=== PATIENT | male | born 1945 | race Caucasian/White ===

== ENCOUNTER 2016-11-28 09:33 | Inpatient (IN) | payer MEDICARE ==
[~2016-11-28] VITALS: Ht 177.8 cm; Wt 89.0 kg
[~2016-11-28 09:33] MED LIST: ANDROGEL TOP; CELE200 PO; JANUMET PO; LEVO.05 PO; LISI40TA PO; SIMV20 PO
[2016-11-28] MEDS ORDERED: CHLORHEXIDINE GLUCONATE 2 % 1 PACK (2 CLOTHS) TOPICAL PRN (10:00)
[2016-11-28] MEDS ORDERED: INSULIN HUMAN REGULAR 1,000 UNITS/10 ML VIAL SQ PRN (10:00)
[2016-11-28] MEDS ORDERED: ACETAMINOPHEN 1000 MG/100 ML VIAL IV SCH (10:00)
[2016-11-28] MEDS ORDERED: metroNIDAZOLE 500 MG INJ 100 ML IV SCH (10:00)
[2016-11-28] MEDS ORDERED: POVIDONE IODINE 5% (ANTISEPSIS KIT) 4 APPLICATIONS EACH NARE PRN (10:00)
[2016-11-28] MEDS ORDERED: SODIUM CHLORID 0.9% 500 ML IV PRN (10:00)
[2016-11-28] MEDS ORDERED: LACTATED RINGER'S 1000 ML IV PRN (10:00)
[2016-11-28] MEDS ORDERED: ceFAZolin 2 GM PREMIX 50 ML IV SCH (10:00)
[2016-11-28] MEDS ORDERED: METOPROLOL TARTRATE 25 MG TAB PO PRN (10:00)
[2016-11-28] MEDS ORDERED: CHOL5000 PO (10:07)
[2016-11-28] MEDS ORDERED: ONDA1TAB17 PO (10:07)
[2016-11-28] MEDS ORDERED: METF1000 PO (10:07)
[2016-11-28] MEDS ORDERED: BIOTCAP PO (10:07)
[2016-11-28] MEDS ORDERED: RAMI10CA PO (10:07)
[2016-11-28] MEDS ORDERED: LUTE20CA PO (10:07)
[2016-11-28] MEDS ORDERED: VITATAB11 (10:07)
[2016-11-28] MEDS ORDERED: VITA100T53 (10:07)
[2016-11-28] MEDS ORDERED: FERR324T8 PO (10:07)
[2016-11-28] MEDS ORDERED: OMEP20TA PO (10:07)
[2016-11-28] MEDS ORDERED: MULTTAB26 (10:07)
[2016-11-28 10:15] VITALS: BP 138/71; PULSE 57; RESP 16; TEMP 98.1; O2SAT 100
[2016-11-28 10:15] LABS: AUTOMATED NEUTROPHIL # 3.6 TH/MM3 (1.8-7.7); BASOPHIL % 0.6 % (0.0-2.0); EOSINOPHIL # 0.3 TH/MM3 (0-0.4); EOSINOPHIL % 5.2 % (0.0-4.0); HEMATOCRIT 40.3 % (39.0-51.0); HEMO FLAGS DIFF FINAL; LYMPH % 26.6 % (9.0-44.0); LYMPHOCYTE # 1.6 TH/MM3 (1.0-4.8); MEAN CELL VOLUME 93.5 FL (80.0-100.0); MEAN CORPUSCULAR HEMOGLOBIN 32.2 PG (27.0-34.0); MEAN CORPUSCULAR HGB CONC 34.5 % (32.0-36.0); MONO % 8.4 % (0.0-8.0); NEUT % 59.2 % (16.0-70.0); PLATELET COUNT 238 TH/MM3 (150-450); RED BLOOD COUNT 4.32 MIL/MM3 (4.50-5.90); RED CELL DISTRIBUTION WIDTH 13.5 % (11.6-17.2); WHITE BLOOD COUNT 6.1 TH/MM3 (4.0-11.0)
[2016-11-28 10:39] LABS: ALKALINE PHOSPHATASE 212 U/L (45-117); TOTAL BILIRUBIN ADULT 2.4 MG/DL (0.2-1.0)
[2016-11-28 10:41] LABS: ALT (GPT) 802 U/L (12-78); ANION GAP 9 MEQ/L (5-15); BLOOD UREA NITROGEN 18 MG/DL (7-18); CHLORIDE 102 MEQ/L (98-107); GLOMERULAR FILTRATION RATE 48 ML/MIN (>89); SODIUM (NA) 136 MEQ/L (136-145)
[2016-11-28 10:56] LABS: AST (GOT) 364 U/L (15-37); POTASSIUM 4.3 MEQ/L (3.5-5.1)
[2016-11-28] MEDS ORDERED: BUPIVACAINE/EPINEPHRINE 0.25% 50 ML VIAL ONE (11:00)
--- NOTE | 2016-11-28 14:05 | RADRPT ---
EXAM DATE/TIME: 11/28/2016 12:49 [facility] COMPARISON: No previous studies available for comparison. INDICATIONS : Obstruction. MEDICAL HISTORY : Hypertension. Diabetes mellitus type 2. Carcinoma, colon. Carcinoma, renal SURGICAL HISTORY : Nephrectomy, right. Inguinal hernia repair. Bilateral knee replacements. ENCOUNTER: Initial ACUITY: 1 day PAIN SCORE: 6/10 LOCATION: Right upper quadrant TECHNIQUE: Multiplanar, multisequence magnetic resonance imaging of the abdomen was performed. High-resolution 3D dataset was utilized to reconstruct maximum-intensity projection (MIP) images. FINDINGS: INTRAHEPATIC BILE DUCTS: Mildly prominent. No significant anatomical variant is present. EXTRAHEPATIC BILE DUCTS: The common bile duct measures 6 mm distally and 11 mm proximally. Multiple filling defects in the dis swati common bile duct. GALLBLADDER: Multiple stones without wall thickening, or pericholecystic fluid. Gallbladder is distended. LIVER: Normal size and signal intensity. No concerning liver lesion is identified on this non-contrast exam. PANCREAS: The main pancreatic duct is normal in size. There is no significant anatomical variant. Signal inte nsity is within normal limits. No mass is visualized on this non-contrast exam. OTHER: The remaining visualized structures demonstrate no acute abnormality on this non-contrast exam. Right kidney is seen below the left kidney. CONCLUSION: 1. Distended gallbladder containing multiple gallstones. 2. Multiple filling defects in the distal common bile duct most consistent with choledocholithiasis. 3. Mild intrahepatic biliary duct dilatation. 4. Ectopic right kidney. Israel Patel MD on November 28, 2016 at 13:54 Board Certified Radiologist. This report was verified electronically.
--- NOTE | 2016-11-28 14:22 | EKG ---
Date Performed: 11/28/2016 Time Performed: 10:18:49 PTAGE: 71 years EKG: SINUS BRADYCARDIA BORDERLINE ECG Compared to prior tracing no significant change PREVIOUS TRACING : 10/28/2007 17.48 DOCTOR: Matty Beach Interpretating Date/Time 11/28/2016 14:20:24
[2016-11-28] MEDS ORDERED: NALOXONE HCL 0.4 MG/ML AMP IV PRN (15:00)
[2016-11-28] MEDS ORDERED: MAGNESIUM HYDROXIDE SUSP 30 ML CUP PO PRN (15:00)
[2016-11-28] MEDS ORDERED: SODIUM CHLORIDE 0.9% FLUSH 10 ML FLUSH IV FLUSH PRN (15:00)
[2016-11-28] MEDS ORDERED: ACETAMINOPHEN 325 MG TAB PO PRN (15:00)
--- NOTE | 2016-11-28 15:02 | PD.CONS ---
HPI Service General Surgery Consult Requested By Reason for Consult Gallstones, choledocholithiasis Primary Care Physician Charlene Enamorado MD History of Present Illness 71 yo M referred to my office yesterday for 4 days of epigastric and RUQ pain associated with nausea and vomiting, worsened with eating. Gallbladder u/s had shown stones but no wall thickening. He did have some mild LFT elevation. He was scheduled for cholecystectomy today with preop LFTs. These had increased, therefore an MRCP was ordered which revealed multiple CBD filling defects. Surgery is cancelled. I discussed the case with Dr. Nj who will likely perform ERCP tomorrow. Dr. Ibarra kindly agrees to admit the patient to the hospital. Review of Systems Constitutional: DENIES: Fever, Chills Eyes: DENIES: Eye inflammation, Eye pain Respiratory: DENIES: Cough, Wheezing Cardiovascular: DENIES: Chest pain, Palpitations Gastrointestinal: COMPLAINS OF: Abdominal pain, Nausea, Vomiting Integumentary: DENIES: Pruritus, Rash Neurologic: DENIES: Localized weakness, Paresthesias Past Family Social History Past Medical History Colon cancer Renal cell carcinoma HTN DM Kidney stones Past Surgical History Right colectomy right nephrectomy Reported Medications Reported Meds & Active Scripts Active Reported Vitamin D3 (Cholecalciferol) 5,000 Unit Cap 5,000 Units PO DAILY Vitamin C (Ascorbic Acid) 100 Mg Tablet 500 Ramipril 10 Mg Cap 10 Mg PO DAILY Ondansetron (Ondansetron HCl) 8 Mg Tab 8 Mg PO TID Omeprazole 20 Mg Tab 20 Mg PO DAILY Multi Complete/Iron (Multiple Vitamins W/ Minerals) 1 Tab Tab Vitamin B Complex (B-Complex Vitamins) 1 Tab Metformin (Metformin HCl) 1,000 Mg Tab 1,000 Mg PO BIDPC With meals Lutein 20 Mg Cap 20 Mg PO DAILY Ferrous Fumarate 324 Mg Tab 325 Mg PO BID Biotin 5 Mg Cap 7.5 Mg PO DAILY Zocor (Simvastatin) 20 Mg Tab 20 Mg PO HS Synthroid (Levothyroxine Sodium) 50 Mcg Tab 50 Mcg PO DAILY Allergies: Coded Allergies: No Known Allergies (Verified , 11/28/16) Active Ordered Medications Current Medications Medications (Trade) Dose Ordered Sig/Laura Route Start Time Stop Time Status Last Admin Lactated Ringer's 1,000 ml @ 30 mls/hr Q24H PRN IV 11/28/16 10:00 12/01/16 09:59 (NS 500 ml Inj) 500 ml @ 30 mls/hr [id number] PRN IV 11/28/16 10:00 12/01/16 09:59 Family History Noncontributory Social History . No tobacco use. Physical Exam Vital Signs Vital Signs Date Time Temp Pulse Resp B/P Pulse Ox O2 Delivery O2 Flow Rate FiO2 11/28/16 10:15 98.1 57 16 138/71 100 Physical Exam Gen: pleasant, awake, alert, no distress HEENT: PERRL. Lungs: CTAB, no wheezing or rhonchi CV: RRR Abd: soft, nontender, well healed right flank and right upper transverse incisions Skin: warm, jaundiced Ext: no cyanosis or edema Laboratory Laboratory Tests Test 11/28/16 10:00 White Blood Count 6.1 Red Blood Count 4.32 Hemoglobin 13.9 Hematocrit 40.3 Mean Corpuscular Volume 93.5 Mean Corpuscular Hemoglobin 32.2 Mean Corpuscular Hemoglobin 34.5 Concent Red Cell Distribution Width 13.5 Platelet Count 238 Mean Platelet Volume 8.7 Neutrophils (%) (Auto) 59.2 Lymphocytes (%) (Auto) 26.6 Monocytes (%) (Auto) 8.4 Eosinophils (%) (Auto) 5.2 Basophils (%) (Auto) 0.6 Neutrophils # (Auto) 3.6 Lymphocytes # (Auto) 1.6 Monocytes # (Auto) 0.5 Eosinophils # (Auto) 0.3 Basophils # (Auto) 0.0 CBC Comment DIFF FINAL Differential Comment Sodium Level 136 Potassium Level 4.3 Chloride Level 102 Carbon Dioxide Level 25.0 Anion Gap 9 Blood Urea Nitrogen 18 Creatinine 1.45 Estimat Glomerular Filtration 48 Rate Random Glucose 153 Calcium Level 8.8 Total Bilirubin 2.4 Aspartate Amino Transf 364 (AST/SGOT) Alanine Aminotransferase 802 (ALT/SGPT) Alkaline Phosphatase 212 Total Protein 8.2 Albumin 4.3 Result Diagram: 11/28/16 1000 11/28/16 1000 Imaging Last Impressions Cholangiopancreatography MRI 11/28/16 0000 Signed Impressions: Service Date/Time: Monday, November 28, 2016 12:49 - CONCLUSION: 1. Distended gallbladder containing multiple gallstones. 2. Multiple filling defects in the distal common bile duct most consistent with choledocholithiasis. 3. Mild intrahepatic biliary duct dilatation. 4. Ectopic right kidney. Israel Patel MD Assessment and Plan Assessment and Plan 71 yo M with gallstones and choledocholithiasis. Case d/w Dr. Nj and Dr. Ibarra. Patient will be admitted with ERCP likely tomorrow. Cholecystectomy will be planned in the near future. Dr. Henderson will be covering this weekend. AltafRandall paz MD November 28, 2016 15:02
--- NOTE | 2016-11-28 15:45 | RADRPT ---
EXAM DATE/TIME: 11/28/2016 14:59 [facility] COMPARISON: No previous studies available for comparison. INDICATIONS : Shortness of breath MEDICAL HISTORY : None. SURGICAL HISTORY : None. ENCOUNTER: Initial ACUITY: 1 day PAIN SCORE: 0/10 LOCATION: Bilateral chest FINDINGS: A single view of the chest demonstrates the lungs to be symmetrically aerated without evidence of mas s, infiltrate or effusion. The cardiomediastinal contours are unremarkable. Osseous structures are intact. CONCLUSION: 1. No acute cardiopulmonary disease. Matty Camacho MD on November 28, 2016 at 15:43 Board Certified Radiologist. This report was verified electronically.
--- NOTE | 2016-11-28 15:59 | HHI.HP ---
HPI Service [facility] Primary Care Physician Charlene Enamorado MD Admission Diagnosis Chief Complaint: RUQ pain Travel History International Travel<30 Days: No Contact w/Intl Traveler <30 Da: No Traveled to Known Affected Are: No History of Present Illness Pt is a pleasant 71y/o M with h/o colon cancer, renal cell carcinoma, HTN, and DM. Pt c/o several days of RUQ abdominal pain with associated nausea and vomiting earlier this week. Symptoms have improved over the last few days and pt is again able to tolerate PO intake. Outpt GB US (10/27/16) showed cholelithiasis without GB wall thickening. Pt was scheduled to undergo elective cholecystectomy today with Dr. Solitario. However, pt developed worsening elevation of his transaminases. MRCP showed multiple filling defects in the distal CBD d/w with choledocholithiasis & GB distended with stones but NO GB wall thickening. Cholecystectomy was cancelled. Case was discussed between General Surgery, Dr. Solitario, and GI, Dr. Nj. Pt made full admission to [facility] and planned for ERCP for 11/29/16. Review of Systems Constitutional: DENIES: Diaphoretic episodes, Fatigue, Fever, Weight gain, Weight loss, Chills, Dizziness, Change in appetite, Night Sweats Endocrine: DENIES: Heat/cold intolerance, Polydipsia, Polyuria, Polyphagia Eyes: DENIES: Blurred vision, Diplopia, Eye inflammation, Eye pain, Vision loss , Photosensitivity, Double Vision Ears, nose, mouth, throat: DENIES: Tinnitus, Hearing loss, Vertigo, Nasal discharge, Oral lesions, Throat pain, Hoarseness, Ear Pain, Running Nose, Epistaxis, Sinus Pain, Toothache, Odynophagia Respiratory: DENIES: Apneas, Cough, Snoring, Wheezing, Hemoptysis, Sputum production, Shortness of breath Cardiovascular: DENIES: Chest pain, Palpitations, Syncope, Dyspnea on Exertion , PND, Lower Extremity Edema, Orthopnea, Claudication Gastrointestinal: COMPLAINS OF: Abdominal pain, Nausea, See HPI, DENIES: Black stools, Bloody stools, BRB per rectum, Constipation, Diarrhea, GERD, Reflux, Vomiting, Difficulty Swallowing, Anorexia Genitourinary: DENIES: Urinary frequency, Urinary incontinence, Urgency, Hematuria, Dysuria, Nocturia Musculoskeletal: DENIES: Joint pain, Muscle aches, Stiffness, Joint Swelling, Back pain, Neck pain Integumentary: DENIES: Abnormal pigmentation, Nail changes, Pruritus, Rash Hematologic/lymphatic: DENIES: Bruising, Lymphadenopathy Immunologic/allergic: DENIES: Eczema, Urticaria Neurologic: DENIES: Abnormal gait, Headache, Localized weakness, Paresthesias, Seizures, Speech Problems, Tremor, Poor Balance Psychiatric: DENIES: Anxiety, Confusion, Mood changes, Depression, Hallucinations, Agitation, Suicidal Ideation, Homicidal Ideation, Delusions, History of Bipolar, History of Schizophrenia Past Family Social History Past Medical History 1) HTN 2) DM2, unspecified complications 3) Colon Cancer 4) Renal Cell Carcinoma, s/p Nephrectomy 5) Nephrolithiasis 6) Hyperlipidemia 7) hypothyroidism Past Surgical History 1) right hemicolectomy 2) right nephrectomy 3) b/l TKA 4) partial bladder resection d/t RCC 5) b/l carpal tunnel surgery 6) left rotator cuff surgery Reported Medications Reported Meds & Active Scripts Active Reported Vitamin D3 (Cholecalciferol) 5,000 Unit Cap 5,000 Units PO DAILY Vitamin C (Ascorbic Acid) 100 Mg Tablet 500 Ramipril 10 Mg Cap 10 Mg PO DAILY Ondansetron (Ondansetron HCl) 8 Mg Tab 8 Mg PO TID Omeprazole 20 Mg Tab 20 Mg PO DAILY Multi Complete/Iron (Multiple Vitamins W/ Minerals) 1 Tab Tab Vitamin B Complex (B-Complex Vitamins) 1 Tab Metformin (Metformin HCl) 1,000 Mg Tab 1,000 Mg PO BIDPC With meals Lutein 20 Mg Cap 20 Mg PO DAILY Ferrous Fumarate 324 Mg Tab 325 Mg PO BID Biotin 5 Mg Cap 7.5 Mg PO DAILY Zocor (Simvastatin) 20 Mg Tab 20 Mg PO HS Synthroid (Levothyroxine Sodium) 50 Mcg Tab 50 Mcg PO DAILY Allergies: Coded Allergies: No Known Allergies (Verified , 11/28/16) Family History Noncontributory Social History - no tobacco - no alcohol - no illicit street drugs Physical Exam Vital Signs Vital Signs Date Time Temp Pulse Resp B/P Pulse Ox O2 Delivery O2 Flow Rate FiO2 11/28/16 10:15 98.1 57 16 138/71 100 Physical Exam GENERAL: This is a well-nourished, well-developed patient, in no apparent distress. SKIN: No rashes, ecchymoses or lesions. Cool and dry. HEAD: Atraumatic. Normocephalic. No temporal or scalp tenderness. EYES: Pupils equal round and reactive. Extraocular motions intact. No scleral icterus. No injection or drainage. ENT: Nose without bleeding, purulent drainage or septal hematoma. Throat without erythema, tonsillar hypertrophy or exudate. Uvula midline. Airway patent. NECK: Trachea midline. No JVD or lymphadenopathy. Supple, nontender, no meningeal signs. CARDIOVASCULAR: Regular rate and rhythm without murmurs, gallops, or rubs. RESPIRATORY: Clear to auscultation. Breath sounds equal bilaterally. No wheezes , rales, or rhonchi. GASTROINTESTINAL: Abdomen soft, non-tender, nondistended. No hepato-splenomegaly , or palpable masses. No guarding. MUSCULOSKELETAL: Extremities without clubbing, cyanosis, or edema. No joint tenderness, effusion, or edema noted. No calf tenderness. Negative Homans sign bilaterally. NEUROLOGICAL: Awake and alert. Cranial nerves II through XII intact. Motor and sensory grossly within normal limits. Five out of 5 muscle strength in all muscle groups. Normal speech. Laboratory Laboratory Tests Test 11/28/16 10:00 White Blood Count 6.1 Red Blood Count 4.32 Hemoglobin 13.9 Hematocrit 40.3 Mean Corpuscular Volume 93.5 Mean Corpuscular Hemoglobin 32.2 Mean Corpuscular Hemoglobin 34.5 Concent Red Cell Distribution Width 13.5 Platelet Count 238 Mean Platelet Volume 8.7 Neutrophils (%) (Auto) 59.2 Lymphocytes (%) (Auto) 26.6 Monocytes (%) (Auto) 8.4 Eosinophils (%) (Auto) 5.2 Basophils (%) (Auto) 0.6 Neutrophils # (Auto) 3.6 Lymphocytes # (Auto) 1.6 Monocytes # (Auto) 0.5 Eosinophils # (Auto) 0.3 Basophils # (Auto) 0.0 CBC Comment DIFF FINAL Differential Comment Sodium Level 136 Potassium Level 4.3 Chloride Level 102 Carbon Dioxide Level 25.0 Anion Gap 9 Blood Urea Nitrogen 18 Creatinine 1.45 Estimat Glomerular Filtration 48 Rate Random Glucose 153 Calcium Level 8.8 Total Bilirubin 2.4 Aspartate Amino Transf 364 (AST/SGOT) Alanine Aminotransferase 802 (ALT/SGPT) Alkaline Phosphatase 212 Total Protein 8.2 Albumin 4.3 Result Diagram: 11/28/16 1000 11/28/16 1000 Imaging Last Impressions Cholangiopancreatography MRI 11/28/16 0000 Signed Impressions: Service Date/Time: Monday, November 28, 2016 12:49 - CONCLUSION: 1. Distended gallbladder containing multiple gallstones. 2. Multiple filling defects in the distal common bile duct most consistent with choledocholithiasis. 3. Mild intrahepatic biliary duct dilatation. 4. Ectopic right kidney. Israel Patel MD Septic Shock Reassessment Heart: Regular rate and rhythm Lungs: Clear Skin: Warm Peripheral Pulses: Bounding Right Radial Bounding Left Radial Bounding Right Popliteal Bounding Left Popliteal Bounding Right Dorsalis Pedis Bounding Left Dorsalis Pedis Bounding Right Posterior Tibial Bounding Left Posterior Tibial Capillary Refill: Brisk Assessment and Plan Problem List: (1) Choledocholithiasis Status: Acute Plan: - Pt experiencing several days of RUQ pain with nausea & vomiting - Pt had been scheduled for elective cholecystectomy with Dr. Solitario - Pt not to have worsening elevation of his transaminases - MRCP (11/28/16) --> filling defects at distal CBD c/w choledocholithiasis - Case discussed between Drs. Solitario and Clem - Pt admitted to [facility] - Pt to undergo ERCP 11/28/16 - narcotics prn (2) HTN (hypertension) Status: Chronic Plan: - altace (3) Hypothyroid Status: Chronic Plan: - synthroid (4) DM2 (diabetes mellitus, type 2) Status: Chronic Plan: - SSI - will resume OHA upon discharge Physician Certification 2 Midnight Certification Type: Admission for Inpatient Services Order for Inpatient Services The services are ordered in accordance with Medicare regulations or non- Medicare payer requirements, as applicable. In the case of services not specified as inpatient-only, they are appropriately provided as inpatient services in accordance with the 2-midnight benchmark. Estimated LOS (days): 3 3 days is the estimated time the patient will need to remain in the hospital, assuming treatment plan goals are met and no additional complications. Post-Hospital Plan: Not yet determined Problem Qualifiers (1) HTN (hypertension): Qualified Code: I10 - Essential hypertension (2) Hypothyroid: Qualified Code: E03.9 - Hypothyroidism, unspecified type (3) DM2 (diabetes mellitus, type 2): Qualified Code: E11.8 - Type 2 diabetes mellitus with complication, without long-term current use of insulin Miguel Ibarra DO November 28, 2016 15:59
[2016-11-28] MEDS ORDERED: ENALAPRILAT 1.25 MG/ML VIAL IV PRN (16:00)
[2016-11-28] MEDS ORDERED: cloNIDine HCL 0.2 MG TAB PO PRN (16:00)
[2016-11-28] MEDS ORDERED: HYDROmorphone HCL PF 1 MG/ML VIAL IV PUSH PRN (16:00)
--- NOTE | 2016-11-28 16:42 | PD.CONS ---
HPI History of Present Illness This is a very pleasant 71 year old male with h/o colon cancer s/p hemicolectomy by Dr. Mckinney, renal cell carcinoma, kidney cancer s/p right nephrectomy , HTN, and DM who is here for elective cholecystectomy, this was cancelled due to worsening LFTs and findings on MRCP that showed choledocholithiasis. Patient reports RUQ abdominal pain associated nausea and vomiting started Sat. night. Outpatient GB US showed cholelithiasis according to patient . MRCP showed multiple filling defects in the distal CBD. Patient denies previous history of this. currently patient is doing good eating dinner, no nausea, no vomiting, the pain has improved. Denies fever, chills, change in bowels or dark urine. (Manan Savage) PFSH Past Medical History Colon cancer, s/p resection by dr. Mckinney Renal cancer kidney cancer s/p nephrectomy DM HTN Nephrolithiasis hypothyroidism Past Surgical History right hemicolectomy right nephrectomy (Manan Savage) Coded Allergies: No Known Allergies (Verified , 11/28/16) Medications Current Medications Medications (Trade) Dose Ordered Sig/Laura Route Start Time Stop Time Status Last Admin Lactated Ringer's 1,000 ml @ 30 mls/hr Q24H PRN IV 11/28/16 10:00 12/01/16 09:59 (NS 500 ml Inj) 500 ml @ 30 mls/hr [id number] PRN IV 11/28/16 10:00 12/01/16 09:59 (NS Flush) 2 ml UNSCH PRN IV FLUSH 11/28/16 15:00 (NS Flush) 2 ml BID IV FLUSH 11/28/16 21:00 (Tylenol) 650 mg Q4H PRN PO 11/28/16 15:00 (Zofran Inj) 4 mg Q6H PRN IVP 11/28/16 15:00 (Narcan Inj) 0.4 mg UNSCH PRN IV 11/28/16 15:00 (Milk Of Magnesia Liq) 30 ml Q12H PRN PO 11/28/16 15:00 ([place] 5-325 Mg) 1 tab Q6H PRN PO 11/28/16 16:00 (Dilaudid Pf Inj) 0.5 mg Q6H PRN IV PUSH 11/28/16 16:00 (Vasotec Inj) 1.25 mg Q6H PRN IV 11/28/16 16:00 (Catapres) 0.2 mg Q6H PRN PO 11/28/16 16:00 (Synthroid) 50 mcg DAILY@0600 PO 11/29/16 06:00 (Glucophage) 1,000 mg BIDPC PO 11/28/16 18:00 (Protonix) 20 mg DAILY PO 11/29/16 09:00 Non-Formulary Medication 8 mg TID PO 11/28/16 18:00 UNV (Altace) 10 mg DAILY PO 11/29/16 09:00 Family History Non contributory Social History No alcohol No smoking No illicit drug use (Manan Savage) Review of Systems Constitutional: COMPLAINS OF: Fatigue Endocrine: DENIES: Polyuria Eyes: DENIES: Double Vision Ears, nose, mouth, throat: DENIES: Hoarseness Respiratory: DENIES: Shortness of breath Cardiovascular: DENIES: Lower Extremity Edema Gastrointestinal: COMPLAINS OF: Abdominal pain, Nausea, Vomiting, DENIES: Black stools, Bloody stools, Constipation, Diarrhea, Difficulty Swallowing, Anorexia, Odynophagia, Swelling of Abdomen, Heartburn, Hematemesis Genitourinary: DENIES: Hematuria Musculoskeletal: DENIES: Back pain Integumentary: DENIES: Jaundice Hematologic/lymphatic: DENIES: Bruising Immunologic/allergic: DENIES: Eczema Neurologic: DENIES: Abnormal gait Psychiatric: DENIES: Anxiety (Manan Savage) GI Exam Vitals I&O Vital Signs Date Time Temp Pulse Resp B/P Pulse Ox O2 Delivery O2 Flow Rate FiO2 11/28/16 10:15 98.1 57 16 138/71 100 Imaging Last Impressions Chest X-Ray 11/28/16 1454 Signed Impressions: Service Date/Time: Monday, November 28, 2016 14:59 - CONCLUSION: 1. No acute cardiopulmonary disease. Matty Camacho MD Cholangiopancreatography MRI 11/28/16 0000 Signed Impressions: Service Date/Time: Monday, November 28, 2016 12:49 - CONCLUSION: 1. Distended gallbladder containing multiple gallstones. 2. Multiple filling defects in the distal common bile duct most consistent with choledocholithiasis. 3. Mild intrahepatic biliary duct dilatation. 4. Ectopic right kidney. Israel Patel MD Laboratory Test 11/28/16 10:00 White Blood Count 6.1 TH/MM3 Red Blood Count 4.32 MIL/MM3 Hemoglobin 13.9 GM/DL Hematocrit 40.3 % Mean Corpuscular Volume 93.5 FL Mean Corpuscular Hemoglobin 32.2 PG Mean Corpuscular Hemoglobin 34.5 % Concent Red Cell Distribution Width 13.5 % Platelet Count 238 TH/MM3 Mean Platelet Volume 8.7 FL Neutrophils (%) (Auto) 59.2 % Lymphocytes (%) (Auto) 26.6 % Monocytes (%) (Auto) 8.4 % Eosinophils (%) (Auto) 5.2 % Basophils (%) (Auto) 0.6 % Neutrophils # (Auto) 3.6 TH/MM3 Lymphocytes # (Auto) 1.6 TH/MM3 Monocytes # (Auto) 0.5 TH/MM3 Eosinophils # (Auto) 0.3 TH/MM3 Basophils # (Auto) 0.0 TH/MM3 CBC Comment DIFF FINAL Differential Comment Sodium Level 136 MEQ/L Potassium Level 4.3 MEQ/L Chloride Level 102 MEQ/L Carbon Dioxide Level 25.0 MEQ/L Anion Gap 9 MEQ/L Blood Urea Nitrogen 18 MG/DL Creatinine 1.45 MG/DL Estimat Glomerular Filtration 48 ML/MIN Rate Random Glucose 153 MG/DL Calcium Level 8.8 MG/DL Total Bilirubin 2.4 MG/DL Aspartate Amino Transf 364 U/L (AST/SGOT) Alanine Aminotransferase 802 U/L (ALT/SGPT) Alkaline Phosphatase 212 U/L Total Protein 8.2 GM/DL Albumin 4.3 GM/DL Physical Examination HEENT: normocephalic; atraumatic; no jaundice. NECK: Neck is supple, no JVD, no lymphadenopathy. CHEST: Chest is clear to auscultation and percussion. CARDIAC: Regular rate and rhythm with no murmur gallop or rubs. ABDOMEN: Soft, nondistended, mild RUQ tenderness; no hepatosplenomegaly; bowel sounds are present in all four quadrants. EXTREMITIES: No clubbing, cyanosis, or edema. SKIN: Normal; no rash; no jaundice. TITLE CHECKER: No focal deficits; alert and oriented times three. (Manan Savage) Assessment and Plan Plan - Choledocholithiasis.RUQ abdominal pain associated nausea and vomiting started Sat. night. Pt was scheduled to undergo elective cholecystectomy today with Dr. Solitario. this is cancelled for now Outpatient GB US showed cholelithiasis according to patient . MRCP showed multiple filling defects in the distal CBD - Worsening LFTs- Secondary to above, obstructive pattern bili 2.4, AST 364, [id number], [id number] - h/o colon cancer s/p hemicolectomy - Renal cell carcinoma, kidney cancer s/p right nephrectomy - HTN, DM per attending Plan: - NPO mn - ERCP in the am - Monitor labs - Supportive care - GS on the case - Patient seen and examined by dr. Nj and myself and this note is written on his behalf. (Manan Savage) Physician Comments Patient seen and examined Agree with above Continue with current supportive care Monitor labs ERCP tomorrow (Anselmo Nj MD) Manan Savage November 28, 2016 16:42 Anselmo Nj MD November 28, 2016 20:33
[2016-11-28 16:45] VITALS: BP 142/69; PULSE 56; RESP 18; TEMP 96.8; O2SAT 99
[2016-11-28] MEDS: metFORMIN HCL 500 MG TAB PO SCH (17:16)
[2016-11-28] MEDS ORDERED: ONDANSETRON 8 MG PO SCH (18:00)
[2016-11-28 20:00] VITALS: BP 108/65; PULSE 55; RESP 18; TEMP 97; O2SAT 96
[2016-11-28] MEDS: SODIUM CHLORIDE 0.9% FLUSH 10 ML FLUSH IV FLUSH SCH (21:29)
[2016-11-29] VITALS: BP 106/61; PULSE 54; RESP 18; TEMP 97.9; O2SAT 99
[2016-11-29 05:50] LABS: AUTOMATED NEUTROPHIL # 2.5 TH/MM3 (1.8-7.7); BASOPHIL % 0.8 % (0.0-2.0); EOSINOPHIL # 0.3 TH/MM3 (0-0.4); EOSINOPHIL % 5.9 % (0.0-4.0); HEMATOCRIT 37.4 % (39.0-51.0); HEMO FLAGS DIFF FINAL; LYMPH % 31.7 % (9.0-44.0); LYMPHOCYTE # 1.6 TH/MM3 (1.0-4.8); MEAN CELL VOLUME 93.9 FL (80.0-100.0); MEAN CORPUSCULAR HEMOGLOBIN 32.5 PG (27.0-34.0); MEAN CORPUSCULAR HGB CONC 34.6 % (32.0-36.0); NEUT % 50.6 % (16.0-70.0); PLATELET COUNT 198 TH/MM3 (150-450); RED BLOOD COUNT 3.98 MIL/MM3 (4.50-5.90)
[2016-11-29 06:17] LABS: ALKALINE PHOSPHATASE 216 U/L (45-117); ALT (GPT) 720 U/L (12-78); ANION GAP 10 MEQ/L (5-15); AST (GOT) 266 U/L (15-37); BICARBONATE 24.8 MEQ/L (21.0-32.0); BLOOD UREA NITROGEN 15 MG/DL (7-18); CHLORIDE 102 MEQ/L (98-107); GLOMERULAR FILTRATION RATE 63 ML/MIN (>89); SODIUM (NA) 137 MEQ/L (136-145); TOTAL BILIRUBIN ADULT 1.5 MG/DL (0.2-1.0)
[2016-11-29] MEDS: LEVOTHYROXINE SODIUM 50 MCG TAB PO SCH (06:27)
[2016-11-29] MEDS: metFORMIN HCL 500 MG TAB PO SCH ×2 (07:44→16:17)
[2016-11-29 08:00] VITALS: BP 131/70; PULSE 50; RESP 16; TEMP 96.7; O2SAT 99
[2016-11-29] MEDS ORDERED: NON-FORMULARY DRUG (Lutein 20 MG) PO SCH (09:00)
[2016-11-29] MEDS: SODIUM CHLORIDE 0.9% FLUSH 10 ML FLUSH IV FLUSH SCH ×2 (09:00→20:00)
[2016-11-29] MEDS: RAMIPRIL 5 MG CAP PO SCH (09:23)
[2016-11-29] MEDS: PANTOPRAZOLE SOD 20 MG DELAYED RELEASE TAB PO SCH (09:23)
[2016-11-29 10:24] LABS: APTT (PATIENT) 27.2 SEC (24.3-30.1); INTERNATIONAL NORMALIZED RATIO 1.1 RATIO; PROTHROMBIN TIME - PATIENT 12.4 SEC (9.8-11.6)
[2016-11-29 12:00] VITALS: BP 114/74; PULSE 62; RESP 17; TEMP 96.7; O2SAT 95
[2016-11-29] MEDS ORDERED: PROPOFOL 200 MG/20 ML AMP IV ONE (13:30)
[2016-11-29] MEDS ORDERED: IOHEXOL 350 MG/ML 50 ML BTL (for RAD DIAG) OTHER ONE (14:25)
--- NOTE | 2016-11-29 15:27 | RADRPT ---
EXAM DATE/TIME: 11/29/2016 14:00 This report includes an Addendum and supersedes previous reports for this exam. [facility] COMPARISON: MRCP W/O CONTRAST, November 28, 2016, 12:49. INDICATIONS : Biliary obstruction FLUORO TIME: 1.6 minutes IMAGE COUNT: 3 CONTRAST: Instilled by Ordering Physician MEDICAL HISTORY : None. SURGICAL HISTORY : None. ENCOUNTER: Initial ACUITY: 1 day PAIN SCORE: Non-responsive. LOCATION: Right upper quadrant FINDINGS: An ERCP was performed in this patient with common duct stones by MRCP. A series of films were presented. On the last film, biliary stent is in good position following sphincterotomy and stent placement. No obvious retained stones are identified. CONCLUSION: Biliary stent in good position. Narinder Maya MD FACR on November 29, 2016 at 15:08 Board Certified Radiologist. This report was verified electronically. ADDENDUM: Biliary stent was not left in place. Last image presented as the injecting catheter in place. Narinder Maya MD FACR on December 03, 2016 at 14:00 Board Certified Radiologist. This report was verified electronically.
[2016-11-29 16:00] VITALS: BP 129/78; PULSE 57; RESP 16; TEMP 95.5; O2SAT 97
[2016-11-29] MEDS: ONDANSETRON HCL 4 MG/2 ML VIAL IVP PRN (17:04)
--- NOTE | 2016-11-29 17:45 | HHI.PR ---
Subjective Remarks Pt c/o increased abdominal. also n/v Objective Vitals Vital Signs Date Time Temp Pulse Resp B/P Pulse Ox O2 Delivery O2 Flow Rate FiO2 11/29/16 16:00 95.5 57 16 129/78 97 11/29/16 15:00 76 20 117/72 99 11/29/16 14:46 97.0 27 18 115/59 99 11/29/16 12:00 96.7 62 17 114/74 95 11/29/16 08:00 96.7 50 16 131/70 99 11/29/16 00:00 97.9 54 18 106/61 99 11/28/16 20:00 97.0 55 18 108/65 96 11/28/16 11/28/16 11/29/16 15:00 23:00 07:00 Intake Total 0 ml 0 ml Output Total 0 ml Balance 0 ml 0 ml Intake Oral 0 ml 0 ml IV Total 0 ml 0 ml Output Urine Total 0 ml # Voids 1 # Bowel Movements 0 0 Result Diagram: 11/29/16 0530 11/29/16 0530 Imaging Last Impressions Cholangiopancreatography MRI 11/28/16 0000 Signed Impressions: Service Date/Time: Monday, November 28, 2016 12:49 - CONCLUSION: 1. Distended gallbladder containing multiple gallstones. 2. Multiple filling defects in the distal common bile duct most consistent with choledocholithiasis. 3. Mild intrahepatic biliary duct dilatation. 4. Ectopic right kidney. Israel Patel MD Objective Remarks GENERAL: This is a well-nourished, well-developed patient, in no apparent distress. CARDIOVASCULAR: Regular rate and rhythm without murmurs, gallops, or rubs. RESPIRATORY: Clear to auscultation. Breath sounds equal bilaterally. No wheezes , rales, or rhonchi. GASTROINTESTINAL: Abdomen soft, non-tender, nondistended. Normal active bowel sounds MUSCULOSKELETAL: Extremities without clubbing, cyanosis, or edema. NEURO: Alert & Oriented x4 to person, place, time, situation. Moves all ext x4 A/P Problem List: (1) Choledocholithiasis Status: Acute Plan: - Pt experiencing several days of RUQ pain with nausea & vomiting - Pt had been scheduled for elective cholecystectomy with Dr. Solitario - Pt not to have worsening elevation of his transaminases - MRCP (11/28/16) --> filling defects at distal CBD c/w choledocholithiasis - Case discussed between Drs. Solitario and Clem - ERCP 11/28/[address] Gupta - sphincterotomy - biliary stent placement - biliary stone extraction - dilaudid prn pain - iv reglan/zofran - simethicone - IVFs - repeat lipase, bmp, mag, lfts in AM (2) HTN (hypertension) Status: Chronic Plan: - altace (3) Hypothyroid Status: Chronic Plan: - synthroid (4) DM2 (diabetes mellitus, type 2) Status: Chronic Plan: - SSI - will resume OHA upon discharge Problem Qualifiers (1) HTN (hypertension): Qualified Code: I10 - Essential hypertension (2) Hypothyroid: Qualified Code: E03.9 - Hypothyroidism, unspecified type (3) DM2 (diabetes mellitus, type 2): Qualified Code: E11.8 - Type 2 diabetes mellitus with complication, without long-term current use of insulin Miguel Ibarra DO November 29, 2016 17:44
[2016-11-29] MEDS ORDERED: METOCLOPRAMIDE HCL 10 MG/2 ML VIAL IV PUSH PRN (18:00)
[2016-11-29] MEDS: SIMETHICONE 80 MG CHEWABLE TAB CHEW SCH ×2 (18:41→23:17)
[2016-11-29] MEDS: NS + KCL 20 MEQ INJ 1,000 ML IV SCH (18:42)
[2016-11-29] MEDS ORDERED: HYDROmorphone HCL PF 1 MG/ML VIAL IV ONE (18:45)
[2016-11-29 20:00] VITALS: BP 118/73; PULSE 73; RESP 18; TEMP 97.1; O2SAT 98
[2016-11-29] MEDS: HYDROmorphone HCL PF 1 MG/ML VIAL IV PUSH PRN (23:18)
[2016-11-30 00:22] VITALS: BP 150/78; PULSE 54; RESP 17; TEMP 96.8; O2SAT 98
[2016-11-30 04:46] VITALS: BP 132/74; PULSE 79; RESP 17; TEMP 96.7; O2SAT 98
[2016-11-30] MEDS: LEVOTHYROXINE SODIUM 50 MCG TAB PO SCH (04:56)
[2016-11-30] MEDS: SIMETHICONE 80 MG CHEWABLE TAB CHEW SCH ×4 (04:56→23:26)
[2016-11-30] MEDS: HYDROmorphone HCL PF 1 MG/ML VIAL IV PUSH PRN ×2 (04:57→11:21)
[2016-11-30] MEDS: NS + KCL 20 MEQ INJ 1,000 ML IV SCH (04:57)
[2016-11-30 05:52] LABS: BICARBONATE 21.3 MEQ/L (21.0-32.0); POTASSIUM 4.9 MEQ/L (3.5-5.1)
[2016-11-30 08:00] VITALS: BP 113/61; PULSE 64; RESP 19; TEMP 95.9; O2SAT 99
[2016-11-30] MEDS: metFORMIN HCL 500 MG TAB PO SCH ×2 (09:00→17:35)
[2016-11-30] MEDS: SODIUM CHLORIDE 0.9% FLUSH 10 ML FLUSH IV FLUSH SCH ×2 (09:00→19:50)
[2016-11-30] MEDS: PANTOPRAZOLE SOD 20 MG DELAYED RELEASE TAB PO SCH (09:47)
[2016-11-30] MEDS: RAMIPRIL 5 MG CAP PO SCH (09:47)
--- NOTE | 2016-11-30 11:33 | HHI.GIFU ---
Subjective Remarks Much better today, no more abdominal pain, nausea or vomiting, tolerating diet well. Objective Vitals I&O Vital Signs Date Time Temp Pulse Resp B/P Pulse Ox O2 Delivery O2 Flow Rate FiO2 11/30/16 08:00 95.9 64 19 113/61 99 11/30/16 05:27 18 11/30/16 04:46 96.7 79 17 132/74 98 11/30/16 00:22 96.8 54 17 150/78 98 11/29/16 20:00 97.1 73 18 118/73 98 11/29/16 19:27 18 11/29/16 16:00 95.5 57 16 129/78 97 11/29/16 15:00 76 20 117/72 99 11/29/16 14:46 97.0 27 18 115/59 99 11/29/16 12:00 96.7 62 17 114/74 95 I/O 11/29/16 11/29/16 11/29/16 11/30/16 11/30/16 11/30/16 07:00 15:00 23:00 07:00 15:00 23:00 Intake Total 0 ml 0 ml 456 ml 1269 ml Output Total 0 ml 500 ml Balance 0 ml 0 ml -44 ml 1269 ml Intake Oral 0 ml 0 ml 360 ml 380 ml IV Total 0 ml 0 ml 96 ml 889 ml Output Urine Total 0 ml 500 ml # Voids 3 1 # Bowel Movements 0 0 Laboratory Laboratory Tests Test 11/30/16 04:53 Sodium Level 139 Potassium Level 4.9 Chloride Level 103 Carbon Dioxide Level 21.3 Anion Gap 15 Blood Urea Nitrogen 18 Creatinine 1.29 Estimat Glomerular Filtration 55 Rate Random Glucose 139 Calcium Level 8.7 Magnesium Level 2.0 Lipase 56366 Physical Exam HEENT: Pupils round and reactive to light; normocephalic; atraumatic; no jaundice. Throat is clear. NECK: Neck is supple, no JVD, no lymphadenopathy. CHEST: Chest is clear to auscultation and percussion. CARDIAC: Regular rate and rhythm with no murmur gallop or rubs. ABDOMEN: Soft, nondistended, nontender; no hepatosplenomegaly; bowel sounds are present in all four quadrants. EXTREMITIES: No clubbing, cyanosis, or edema. SKIN: Normal; no rash; no jaundice. COATING TECHNICIAN: No focal deficits; alert and oriented times three. Assessment and Plan Plan - Choledocholithiasis.S/P ERCP with sphincterotomy and stones extraction - Post ERCP pancreatitis, resolved within few hours and asymptomatic now. - h/o colon cancer s/p hemicolectomy - Renal cell carcinoma, kidney cancer s/p right nephrectomy - HTN, DM per attending Plan: - TRACEY - Monitor labs, daily LFT's - Supportive care - GS on the case - Will follow up with you as needed. Rosalino Gupta MD November 30, 2016 11:33
[2016-11-30 12:00] VITALS: BP 145/71; PULSE 59; RESP 16; TEMP 96.8; O2SAT 97
[2016-11-30 16:00] VITALS: BP 134/83; PULSE 64; RESP 15; TEMP 96.5; O2SAT 98
--- NOTE | 2016-11-30 17:06 | HHI.PR ---
Subjective Remarks Pt's abdominal pain is much improved today. Still occasionally requiring IV dilaudid. Nausea resolved. Pt is tolerating clear diet. Objective Vitals Vital Signs Date Time Temp Pulse Resp B/P Pulse Ox O2 Delivery O2 Flow Rate FiO2 11/30/16 16:00 96.5 64 15 134/83 98 11/30/16 12:00 96.8 59 16 145/71 97 11/30/16 08:00 95.9 64 19 113/61 99 11/30/16 05:27 18 11/30/16 04:46 96.7 79 17 132/74 98 11/30/16 00:22 96.8 54 17 150/78 98 11/29/16 20:00 97.1 73 18 118/73 98 11/29/16 19:27 18 11/29/16 11/29/16 11/30/16 15:00 23:00 07:00 Intake Total 0 ml 456 ml 1269 ml Output Total 500 ml Balance 0 ml -44 ml 1269 ml Intake Oral 0 ml 360 ml 380 ml IV Total 0 ml 96 ml 889 ml Output Urine Total 500 ml # Voids 3 1 # Bowel Movements 0 Result Diagram: 11/29/16 0530 11/30/16 0453 Imaging Last Impressions Cholangiopancreatography MRI 11/28/16 0000 Signed Impressions: Service Date/Time: Monday, November 28, 2016 12:49 - CONCLUSION: 1. Distended gallbladder containing multiple gallstones. 2. Multiple filling defects in the distal common bile duct most consistent with choledocholithiasis. 3. Mild intrahepatic biliary duct dilatation. 4. Ectopic right kidney. Israel Patel MD Objective Remarks GENERAL: This is a well-nourished, well-developed patient, in no apparent distress. CARDIOVASCULAR: Regular rate and rhythm without murmurs, gallops, or rubs. RESPIRATORY: Clear to auscultation. Breath sounds equal bilaterally. No wheezes , rales, or rhonchi. GASTROINTESTINAL: Abdomen soft, non-tender, nondistended. Normal active bowel sounds MUSCULOSKELETAL: Extremities without clubbing, cyanosis, or edema. NEURO: Alert & Oriented x4 to person, place, time, situation. Moves all ext x4 A/P Problem List: (1) Choledocholithiasis Status: Acute Plan: - Pt experiencing several days of RUQ pain with nausea & vomiting - Pt had been scheduled for elective cholecystectomy with Dr. Solitario - Pt not to have worsening elevation of his transaminases - MRCP (11/28/16) --> filling defects at distal CBD c/w choledocholithiasis - Case discussed between Drs. Solitario and Clem - ERCP 11/28/[address] Gupta - sphincterotomy - biliary stone extraction - dilaudid prn pain - iv reglan/zofran - simethicone - lipase 17,900 (11/30/16) - repeat lipase in AM - advance diet to full liquids - will advance diet in AM - if lipase improves and able to tolerate diet, then anticipate d/c 12/01 (2) HTN (hypertension) Status: Chronic Plan: - altace (3) Hypothyroid Status: Chronic Plan: - synthroid (4) DM2 (diabetes mellitus, type 2) Status: Chronic Plan: - SSI - will resume OHA upon discharge Problem Qualifiers (1) HTN (hypertension): Qualified Code: I10 - Essential hypertension (2) Hypothyroid: Qualified Code: E03.9 - Hypothyroidism, unspecified type (3) DM2 (diabetes mellitus, type 2): Qualified Code: E11.8 - Type 2 diabetes mellitus with complication, without long-term current use of insulin Miguel Ibarra DO November 30, 2016 17:05 Miguel Ibarra DO November 30, 2016 17:05
[2016-11-30] MEDS ORDERED: HYDROmorphone HCL PF 1 MG/ML VIAL IV PUSH PRN (17:15)
[2016-11-30] MEDS: ONDANSETRON HCL 4 MG/2 ML VIAL IVP PRN (17:35)
[2016-11-30] MEDS: ACETAMINOPHEN/HYDROcodone 325 MG/5 MG TAB PO PRN (17:35)
[2016-11-30 20:00] VITALS: BP 123/70; PULSE 59; RESP 18; TEMP 97.9; O2SAT 98
[2016-12-01] VITALS: BP 118/56; PULSE 64; RESP 17; TEMP 97.6; O2SAT 100
[2016-12-01] MEDS: SIMETHICONE 80 MG CHEWABLE TAB CHEW SCH ×3 (05:12→17:03)
[2016-12-01] MEDS: LEVOTHYROXINE SODIUM 50 MCG TAB PO SCH (05:12)
[2016-12-01 08:00] VITALS: BP 133/68; PULSE 74; RESP 20; TEMP 96.4; O2SAT 98
[2016-12-01] MEDS: PANTOPRAZOLE SOD 20 MG DELAYED RELEASE TAB PO SCH (09:00)
[2016-12-01] MEDS: metFORMIN HCL 500 MG TAB PO SCH ×2 (09:01→17:03)
[2016-12-01] MEDS: RAMIPRIL 5 MG CAP PO SCH (09:01)
[2016-12-01] MEDS: SODIUM CHLORIDE 0.9% FLUSH 10 ML FLUSH IV FLUSH SCH ×2 (09:01→19:55)
--- NOTE | 2016-12-01 10:49 | HHI.GIFU ---
Subjective Remarks asymptomatic today and tolerating fluids well. Objective Vitals I&O Vital Signs Date Time Temp Pulse Resp B/P Pulse Ox O2 Delivery O2 Flow Rate FiO2 12/01/16 08:00 96.4 74 20 133/68 98 12/01/16 00:00 97.6 64 17 118/56 100 11/30/16 20:00 97.9 59 18 123/70 98 11/30/16 16:00 96.5 64 15 134/83 98 11/30/16 12:00 96.8 59 16 145/71 97 I/O 11/30/16 11/30/16 11/30/16 12/01/16 12/01/16 12/01/16 07:00 15:00 23:00 07:00 15:00 23:00 Intake Total 1269 ml 1515 ml 480 ml 480 ml Balance 1269 ml 1515 ml 480 ml 480 ml Intake Oral 380 ml 550 ml 480 ml 480 ml IV Total 889 ml 965 ml # Voids 1 5 2 2 # Bowel Movements 0 Laboratory Laboratory Tests Test 12/01/16 05:29 Lipase 1690 Physical Exam HEENT: Pupils round and reactive to light; normocephalic; atraumatic; no jaundice. Throat is clear. NECK: Neck is supple, no JVD, no lymphadenopathy. CHEST: Chest is clear to auscultation and percussion. CARDIAC: Regular rate and rhythm with no murmur gallop or rubs. ABDOMEN: Soft, nondistended, nontender; no hepatosplenomegaly; bowel sounds are present in all four quadrants. EXTREMITIES: No clubbing, cyanosis, or edema. SKIN: Normal; no rash; no jaundice. ACOUSTICAL TILE PATTERNMAKER: No focal deficits; alert and oriented times three. Assessment and Plan Plan - Choledocholithiasis.S/P ERCP with sphincterotomy and stones extraction - h/o colon cancer s/p hemicolectomy - Renal cell carcinoma, kidney cancer s/p right nephrectomy - HTN, DM per attending Plan: - TRACEY - Monitor labs, daily LFT's - Supportive care - GS on the case - Will sign off for now, please notify us if needed. Rosalino Gupta MD December 01, 2016 10:49
[2016-12-01 12:00] VITALS: BP 95/55; PULSE 65; RESP 20; TEMP 97.6; O2SAT 97
--- NOTE | 2016-12-01 14:04 | HHI.PR ---
Subjective Remarks doing well. abdomen pain resolved. Objective Vitals heart reg lung cta abd s/nt ext no edema Vital Signs Date Time Temp Pulse Resp B/P Pulse Ox O2 Delivery O2 Flow Rate FiO2 12/01/16 08:00 96.4 74 20 133/68 98 12/01/16 00:00 97.6 64 17 118/56 100 11/30/16 20:00 97.9 59 18 123/70 98 11/30/16 16:00 96.5 64 15 134/83 98 11/30/16 11/30/16 12/01/16 15:00 23:00 07:00 Intake Total 1515 ml 480 ml 480 ml Balance 1515 ml 480 ml 480 ml Intake Oral 550 ml 480 ml 480 ml IV Total 965 ml # Voids 5 2 2 # Bowel Movements 0 Result Diagram: 11/29/16 0530 11/30/16 0453 Imaging Last Impressions Cholangiopancreatography MRI 11/28/16 0000 Signed Impressions: Service Date/Time: Monday, November 28, 2016 12:49 - CONCLUSION: 1. Distended gallbladder containing multiple gallstones. 2. Multiple filling defects in the distal common bile duct most consistent with choledocholithiasis. 3. Mild intrahepatic biliary duct dilatation. 4. Ectopic right kidney. Israel Patel MD A/P Problem List: (1) Choledocholithiasis Status: Acute Plan: - Pt experiencing several days of RUQ pain with nausea & vomiting - Pt had been scheduled for elective cholecystectomy with Dr. Solitario - Pt not to have worsening elevation of his transaminases - MRCP (11/28/16) --> filling defects at distal CBD c/w choledocholithiasis -- ERCP 11/28/[address] Gupta - sphincterotomy - biliary stone extraction -post ercp pancreatitis. doing well today. lap jovanni tomorrow then d/c once stable/' (2) HTN (hypertension) Status: Chronic Plan: - altace (3) Hypothyroid Status: Chronic Plan: - synthroid (4) DM2 (diabetes mellitus, type 2) Status: Chronic Plan: - SSI - will resume OHA upon discharge Problem Qualifiers (1) HTN (hypertension): Qualified Code: I10 - Essential hypertension (2) Hypothyroid: Qualified Code: E03.9 - Hypothyroidism, unspecified type (3) DM2 (diabetes mellitus, type 2): Qualified Code: E11.8 - Type 2 diabetes mellitus with complication, without long-term current use of insulin Robel Mistry MD December 01, 2016 14:04
[2016-12-01 16:00] VITALS: BP 119/63; PULSE 71; RESP 17; TEMP 96.8; O2SAT 97
[2016-12-01 20:00] VITALS: BP 102/57; PULSE 71; RESP 17; TEMP 96.5; O2SAT 98
[2016-12-01] MEDS ORDERED: CHLORHEXIDINE GLUCONATE 2 % 1 PACK (2 CLOTHS) TOPICAL PRN (21:30)
[2016-12-01] MEDS ORDERED: LACTATED RINGER'S 1000 ML IV PRN (21:30)
[2016-12-02] VITALS: BP_SYST 110; BP_SYST 158; BP_DIAS 60; BP_DIAS 62; PULSE 68; PULSE 76; RESP 17; TEMP 96; TEMP 98; O2SAT 99
[2016-12-02] MEDS: SIMETHICONE 80 MG CHEWABLE TAB CHEW SCH ×4 (00:10→17:33)
[2016-12-02] MEDS: LEVOTHYROXINE SODIUM 50 MCG TAB PO SCH (05:07)
[2016-12-02 08:00] VITALS: BP 114/59; PULSE 64; RESP 18; TEMP 96.8; O2SAT 95
--- NOTE | 2016-12-02 09:09 | HHI.PR ---
Subjective Remarks Pt planned for Lap Louise this afternoon No complaints currently Anxious to go home Objective Vitals Vital Signs Date Time Temp Pulse Resp B/P Pulse Ox O2 Delivery O2 Flow Rate FiO2 12/02/16 08:00 96.8 64 18 114/59 95 12/02/16 00:00 96.0 68 17 110/60 99 12/01/16 20:00 96.5 71 17 102/57 98 12/01/16 16:00 96.8 71 17 119/63 97 12/01/16 12:00 97.6 65 20 95/55 97 12/01/16 12/01/16 12/02/16 15:00 23:00 07:00 Intake Total 780 ml 240 ml 0 ml Balance 780 ml 240 ml 0 ml Intake Oral 780 ml 240 ml 0 ml # Voids 2 2 2 # Bowel Movements 2 Result Diagram: 11/29/16 0530 11/30/16 0453 Other Results Laboratory Tests Test 12/01/16 05:29 Lipase 1690 U/L Imaging Last Impressions Cholangiopancreatography MRI 11/28/16 0000 Signed Impressions: Service Date/Time: Monday, November 28, 2016 12:49 - CONCLUSION: 1. Distended gallbladder containing multiple gallstones. 2. Multiple filling defects in the distal common bile duct most consistent with choledocholithiasis. 3. Mild intrahepatic biliary duct dilatation. 4. Ectopic right kidney. Israel Patel MD Objective Remarks General: NAD, AAOx3 Chest: CTA Cardiac: Regular Abd:+BS, soft ND/NT Ext: No edema A/P Problem List: (1) Choledocholithiasis Status: Acute Plan: - Pt had been experiencing several days of RUQ pain with nausea & vomiting - Pt had been scheduled for elective cholecystectomy with Dr. Solitario - Pt noted to have worsening elevation of his transaminases - MRCP (11/28/16) --> filling defects at distal CBD c/w choledocholithiasis - ERCP 11/28/[address] Gupta - sphincterotomy - biliary stone extraction - Pt developed post ERCP pancreatitis but has been improving clinically. - Pt is planned for Lap louise today. - Plan for d/c home once stable and cleared from a surgical standpoint. (2) HTN (hypertension) Status: Chronic Plan: - altace (3) Hypothyroid Status: Chronic Plan: - synthroid (4) DM2 (diabetes mellitus, type 2) Status: Chronic Plan: - SSI - will resume OHA upon discharge Assessment and Plan Patient examined. Assessment and plan formulated with Concha Fair PA-C. Eugene agree with the above. s/p lap louise. f/u dr solitario. f/u gi. s/p ercp. Problem Qualifiers (1) HTN (hypertension): Qualified Code: I10 - Essential hypertension (2) Hypothyroid: Qualified Code: E03.9 - Hypothyroidism, unspecified type (3) DM2 (diabetes mellitus, type 2): Qualified Code: E11.8 - Type 2 diabetes mellitus with complication, without long-term current use of insulin Concha Fair December 02, 2016 09:09 Roble Mistry MD December 02, 2016 21:12
[2016-12-02] MEDS: PANTOPRAZOLE SOD 20 MG DELAYED RELEASE TAB PO SCH (09:23)
[2016-12-02] MEDS: SODIUM CHLORIDE 0.9% FLUSH 10 ML FLUSH IV FLUSH SCH ×2 (09:23→21:34)
[2016-12-02] MEDS: metFORMIN HCL 500 MG TAB PO SCH ×2 (09:23→17:32)
[2016-12-02] MEDS: RAMIPRIL 5 MG CAP PO SCH (09:23)
[2016-12-02] MEDS ORDERED: ceFAZolin 2 GM PREMIX 50 ML IV SCH (11:00)
[2016-12-02] MEDS ORDERED: METRONIDAZOLE 500 MG/100 ML ISONTONIC SOLN IV SCH (11:00)
[2016-12-02 12:00] VITALS: BP 120/67; PULSE 76; RESP 20; TEMP 97; O2SAT 96
[2016-12-02] MEDS ORDERED: BUPIVACAINE/EPINEPHRINE 0.25% PF 10 ML VIAL ONE (12:48)
[2016-12-02] MEDS ORDERED: MIDAZOLAM HCL 2 MG/2 ML VIAL ONE (13:37)
[2016-12-02] MEDS ORDERED: ACETAMINOPHEN 1000 MG/100 ML VIAL IV ONE (13:37)
[2016-12-02] MEDS ORDERED: DEXAMETHASONE SOD PHOS 4 MG/ML VIAL ONE (13:37)
[2016-12-02] MEDS ORDERED: fentaNYL CITRATE 250 MCG/5 ML AMP ONE ×2 (13:37→14:45)
[2016-12-02] MEDS ORDERED: FAMOTIDINE 20 MG/2 ML VIAL ONE (13:37)
[2016-12-02 14:00] VITALS: BP 123/61; PULSE 73; RESP 16; TEMP 96.5; O2SAT 98
[2016-12-02] MEDS ORDERED: PROPOFOL 200 MG/20 ML AMP IV ONE (14:48)
[2016-12-02] MEDS ORDERED: NEOSTIGMINE 3 MG/3 ML SYR IV ONE (14:48)
[2016-12-02] MEDS ORDERED: ePHEDrine/NS 25 MG/5 ML SYR IV ONE (14:48)
[2016-12-02] MEDS ORDERED: ONDANSETRON HCL 4 MG/2 ML VIAL IV PUSH ONE (14:49)
[2016-12-02] MEDS ORDERED: LACTATED RINGER'S 1000 ML INJ 1,000 ML IV ONE (14:49)
[2016-12-02] MEDS ORDERED: DO NOT ADM ANY ANTICOAGULANT DRUGS PRN (15:21)
--- NOTE | 2016-12-02 15:24 | PD.OP ---
cc: Randall Solitario MD Operative Report Date of Surgery: December 02, 2016 Preoperative Diagnosis: (1) Choledocholithiasis (2) Gallstones Postoperative Diagnosis: (1) Gallstones (2) Choledocholithiasis Procedure: Laparoscopic cholecystectomy Anesthesia: GETA Surgeon: Randall Solitario Certified Medical Asst(s): Flavio MS3 Operation and Findings: Complications: None apparent EBL: 20 cc Operative findings: Chronic inflammation. A single omental band across the lower abdomen divided to prevent future internal herniation. Procedure in detail: The patient was taken to the operating room and placed in the supine position. General endotracheal anesthesia was induced. The abdomen was prepped and draped in usual sterile fashion and a surgical timeout was performed to verify correct patient procedure and site. Appropriate perioperative antibiotics were administered. Local anesthetic was injected in the skin and subcutaneous tissue in the left upper quadrant to avoid previous colectomy incision and a 5 mm incision performed. The abdomen was entered using the Optiview 5 mm trocar with direct laparoscopic visualization. The abdomen was then insufflated to 15 mmHg with CO2 gas which the patient tolerated well. There was minimal adhesions in the upper abdomen. Next a 5 mm incision was made to the right of the umbilicus and a 5 mm port placed. Next a 12 mm port was placed in the epigastrium and two 5 mm ports in the right upper quadrant and right lateral abdomen. The patient was placed in reverse Trendelenburg position and turned slightly to the left. Attention was turned to the right upper quadrant and the dome of the gallbladder was grasped and retracted cephalad. The infundibulum was retracted laterally to expose Calot's triangle. Blunt dissection and judicious use of electrocautery was used to expose the cystic duct and the cystic artery directly entering the gallbladder. The gallbladder had some adhesions to the liver which were taken down carefully. Two clips were placed proximally the artery and one distally and it was transected. The cystic duct was large and a clip repairer would not have covered the duct. Therefore, The gallbladder was then removed from the liver bed using electrocautery. Now the infundibulum cystic duct junction was entering the gallbladder with no other structures present. I used 2 #1 PDS Endoloops around the cystic duct and transected it between. Hemostasis was achieved. The gallbladder was then removed from the abdomen using an Endo Catch bag. The clips and loop were in place on the cystic duct and cystic artery stumps with no bleeding or bile leakage. At this point, the abdomen was allowed to desufflate and trochars were removed. The fascia at the 12 mm port site was closed with 0 Vicryl suture. Skin was closed with subcuticular 4-0 Monocryl as well as Dermabond. The patient tolerated the procedure well and was extubated and taken to PACU in stable condition. All sponge and instrument counts were correct. Randall Solitario MD December 02, 2016 15:24
[2016-12-02 16:00] VITALS: BP 134/66; PULSE 77; RESP 16; TEMP 97.2; O2SAT 97
[2016-12-02 21:00] VITALS: BP 124/75; PULSE 78; RESP 17; TEMP 96.6; O2SAT 98
[2016-12-03] VITALS: BP 120/71; PULSE 72; RESP 17; TEMP 96; O2SAT 98
[2016-12-03] MEDS: SIMETHICONE 80 MG CHEWABLE TAB CHEW SCH ×3 (00:26→11:29)
[2016-12-03] MEDS: ACETAMINOPHEN/HYDROcodone 325 MG/5 MG TAB PO PRN ×2 (00:30→07:45)
[2016-12-03 04:00] VITALS: BP 113/61; PULSE 61; RESP 17; TEMP 96.9; O2SAT 98
[2016-12-03] MEDS: LEVOTHYROXINE SODIUM 50 MCG TAB PO SCH (05:06)
[2016-12-03] MEDS: RAMIPRIL 5 MG CAP PO SCH (07:45)
[2016-12-03] MEDS: PANTOPRAZOLE SOD 20 MG DELAYED RELEASE TAB PO SCH (07:45)
[2016-12-03] MEDS: SODIUM CHLORIDE 0.9% FLUSH 10 ML FLUSH IV FLUSH SCH (07:45)
[2016-12-03] MEDS: metFORMIN HCL 500 MG TAB PO SCH (07:45)
[2016-12-03 08:00] VITALS: BP 132/73; PULSE 61; RESP 18; TEMP 96.3; O2SAT 95
--- NOTE | 2016-12-03 08:15 | HHI.DCPOC ---
Discharge Care Plan Diagnosis: (1) HTN (hypertension) (2) Hypothyroid (3) DM2 (diabetes mellitus, type 2) (4) Choledocholithiasis (5) Gallstones Goals to Promote Your Health * To prevent worsening of your condition and complications * To maintain your health at the optimal level Directions to Meet Your Goals Take your medications as prescribed Follow your dietary instruction Follow activity as directed Keep your appointments as scheduled Take your immunizations and boosters as scheduled If your symptoms worsen call your PCP, if no PCP go to Urgent Care Center or Emergency Room Smoking is Dangerous to Your Health. Avoid second hand smoke Call the 24-hour hour crisis hotline for domestic abuse at Concha Fair December 03, 2016 08:15
--- NOTE | 2016-12-03 09:29 | HHI.DS ---
Discharge Summary Admission Date November 28, 2016 at 14:57 Discharge Date: December 03, 2016 Admitting Diagnosis (1) Choledocholithiasis Diagnosis: Principal (2) HTN (hypertension) Diagnosis: Secondary (3) Hypothyroid Diagnosis: Secondary (4) DM2 (diabetes mellitus, type 2) Diagnosis: Secondary Consultants Dr. Randall Solitario - General Surgery Dr. Anselmo Nj - GI Procedures - ERCP 11/28/[address] Gupta - sphincterotomy - biliary stone extraction - Lap jovanni with Dr. Solitario on 12/02/16 Brief History Pt is a pleasant 71y/o M with h/o colon cancer, renal cell carcinoma, HTN, and DM. Pt c/o several days of RUQ abdominal pain with associated nausea and vomiting earlier this week. Symptoms have improved over the last few days and pt is again able to tolerate PO intake. Outpt GB US (10/27/16) showed cholelithiasis without GB wall thickening. Pt was scheduled to undergo elective cholecystectomy today with Dr. Solitario. However, pt developed worsening elevation of his transaminases. MRCP showed multiple filling defects in the distal CBD d/w with choledocholithiasis & GB distended with stones but NO GB wall thickening. Cholecystectomy was cancelled. Case was discussed between General Surgery, Dr. Solitario, and GI, Dr. Nj. Pt made full admission to [facility] and planned for ERCP for 11/29/16. CBC/BMP: 11/29/16 0530 11/30/16 0453 Significant Findings Laboratory Tests Test 12/01/16 05:29 Lipase 1690 U/L ([id number]) Imaging Last Impressions GI Procedure 11/29/16 0000 Signed Impressions: Service Date/Time: Tuesday, November 29, 2016 14:00 - CONCLUSION: Biliary stent in good position. Narinder Maya MD FACR Chest X-Ray 11/28/16 1454 Signed Impressions: Service Date/Time: Monday, November 28, 2016 14:59 - CONCLUSION: 1. No acute cardiopulmonary disease. Matty Camacho MD Cholangiopancreatography MRI 11/28/16 0000 Signed Impressions: Service Date/Time: Monday, November 28, 2016 12:49 - CONCLUSION: 1. Distended gallbladder containing multiple gallstones. 2. Multiple filling defects in the distal common bile duct most consistent with choledocholithiasis. 3. Mild intrahepatic biliary duct dilatation. 4. Ectopic right kidney. Israel Patel MD PE at Discharge General: NAD, AAOx3 Chest: CTA Cardiac: Regular Abd:+BS, soft ND/NT Ext: No edema Hospital Course Pt was admitted with several days of RUQ pain with nausea & vomiting. Pt had been scheduled for elective cholecystectomy with Dr. Solitario. Pt noted to have worsening elevation of his transaminases. MRCP (11/28/16) --> filling defects at distal CBD c/w choledocholithiasis. GI was consulted. Pt underwent ERCP with sphincterotomy on 11/28/[address] Gupta and had biliary stone extraction. Pt developed post ERCP pancreatitis but this improved with IVF and bowel rest. Once pt improved clinically from the pancreatitis pt then underwent Lap jovanni on 12/02/[address] Solitario. Pt did well post-operatively. He has tolerated his diet. Pt reports minimal abd discomfort and he has moved his bowels post- operatively. Pt will need [address] Solitario Pt will need 2 week followup with GI Pt will need to followup with his PCP, Dr. Charlene Enamorado, in 1 week. Pt Condition on Discharge: Stable Discharge Disposition: Discharge Home Discharge Instructions DIET: Follow Instructions for: Low Fat Diet Activities you can perform: Regular-No Restrictions Follow up Referrals: Gastroenterology - 2 Weeks with Anselmo Nj MD PCP Follow-up - [address] Charlene Enamorado Surgical - 1 Week with Randall Solitario MD Continued Medications: Ferrous Fumarate (Ferrous Fumarate) 324 Mg Tab 325 MG PO BID Nutritional Supplement #60 Ref 0 TAB Levothyroxine Sodium (Synthroid) 50 Mcg Tab 50 MCG PO DAILY Ref 0 Metformin (Metformin) 1,000 Mg Tab 1000 MG PO BIDPC With meals Blood Sugar Management #60 Ref 0 TAB Multiple Vitamins W/ Minerals (Multi Complete/Iron) 1 Tab Tab Omeprazole (Omeprazole) 20 Mg Tab 20 MG PO DAILY #30 Ref 0 TAB Ondansetron (Ondansetron) 8 Mg Tab 8 MG PO TID Nausea/Vomiting Ref 0 TAB Ramipril (Ramipril) 10 Mg Cap 10 MG PO DAILY #30 Ref 0 CAP Simvastatin 20 mg tab (Zocor) 20 Mg Tab 20 MG PO HS Ref 0 Discontinued Medications: Ascorbic Acid (Vitamin C) 100 Mg Tablet 500 B-Complex Vitamins (Vitamin B Complex) 1 Tab Biotin (Biotin) 5 Mg Cap 7.5 MG PO DAILY Nutritional Supplement #1 Ref 0 BOTTLE Cholecalciferol (Vitamin D3) 5,000 Unit Cap 5000 UNITS PO DAILY Nutritional Supplement #1 Ref 0 BOTTLE Lutein (Lutein) 20 Mg Cap 20 MG PO DAILY Nutritional Supplement Ref 0 CAP Concha Fair December 03, 2016 09:29
[2016-12-03] MEDS ORDERED: NORC5TAB PO (10:45)
== END 2016-12-03 12:04 | disposition home or self-care (01) | DRG 417 ==
LOC: HSDC 09:33 → HSDI 14:57 → N07A 16:33
PROVIDERS: ADMIT Hospitalist; ATTEND Hospitalist
PROC: 0FC98ZZ Extirpation of Matter from Common Bile Duct, Via Natural or Artificial Opening Endoscopic (ICD-10-PCS; 2016-11-29)
PROC: 0FT44ZZ Resection of Gallbladder, Percutaneous Endoscopic Approach (ICD-10-PCS; principal; 2016-12-02 13:39)
DX: K80.70 Calculus of gallbladder and bile duct without cholecystitis without obstruction (principal); K85.90 Acute pancreatitis without necrosis or infection, unspecified; Y84.8 Other medical procedures as the cause of abnormal reaction of the patient, or of later complication, without mention of misadventure at the time of the procedure; E11.9 Type 2 diabetes mellitus without complications; I10 Essential (primary) hypertension; E03.9 Hypothyroidism, unspecified; E78.5 Hyperlipidemia, unspecified; Z85.038 Personal history of other malignant neoplasm of large intestine; Z85.528 Personal history of other malignant neoplasm of kidney; Z90.5 Acquired absence of kidney; Z79.84 Long term (current) use of oral hypoglycemic drugs
CPT/HCPCS: 71010; 74181; 74330; 76377; 80048; 80053; 82248; 83690; 83735; 85025; 85610; 85730; 88304; 93005; 99211; C1769; G0463; J0131; J1100; J1170; J2250; J2405; J2710; J2765; J3010; J3480; J7120; Q9967